=== PATIENT | female | born 2000 | race African-American/Black ===

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

== ENCOUNTER 2021-03-29 19:58 | Emergency (ER) | payer OTHER ==
[~2021-03-29] VITALS: Ht 160 cm; Wt 113.4 kg
[~2021-03-29 19:58] MED LIST: CHILDREN'S ZYRT10 M1 PO
[2021-03-29 20:40] VITALS: BP 116/65
[2021-03-29 21:29] LABS: URINE BILIRUBIN NEGATIVE (Negative); URINE BLOOD NEGATIVE (Negative); URINE CLARITY CLEAR; URINE COLOR YELLOW; URINE GLUCOSE-RANDOM* NEGATIVE (Negative); URINE KETONES NEGATIVE (Negative); URINE LEUKOCYTES-REFLEX NEGATIVE (Negative); URINE NITRITE-REFLEX NEGATIVE (Negative); URINE PROTEIN (DIPSTICK) NEGATIVE (Negative); URINE SPECIFIC GRAVITY 1.025 (1.005-1.035); URINE UROBILINOGEN 0.2 E.U./dl (0.2-1.0)
== END 2021-03-29 23:36 | disposition admitted as inpatient to this hospital (09) ==
LOC: ER 19:58
PROVIDERS: Emergency Medicine
DX: R10.84 Generalized abdominal pain (principal); M79.602 Pain in left arm; Z88.8 Allergy status to other drugs, medicaments and biological substances; V89.2XXA Person injured in unspecified motor-vehicle accident, traffic, initial encounter; Y93.89 Activity, other specified; Y92.89 Other specified places as the place of occurrence of the external cause; Y99.8 Other external cause status